=== PATIENT | female | born 1930 | race Hispanic/Latino ===

== ENCOUNTER → 2018-08-16 | Outpatient (CLI) | payer OTHER, MEDICARE ==
[~2018-08-16] MED LIST: AMLO2.5T4 PO; AMLO5TAB9 PO; VALS1TAB75 PO
== END | disposition home or self-care (01) ==
LOC: RAH 11:11
PROVIDERS: ATTEND Internal Medicine
DX: I70.0 Atherosclerosis of aorta (principal); K44.9 Diaphragmatic hernia without obstruction or gangrene; M47.815 Spondylosis without myelopathy or radiculopathy, thoracolumbar region; M41.84 Other forms of scoliosis, thoracic region; I10 Essential (primary) hypertension
CPT/HCPCS: 71046